=== PATIENT | female | born 1985 | race Caucasian/White ===

== ENCOUNTER → 2016-12-29 | Day surgery (SDC) | payer OTHER ==
[2016-12-25 15:02] VITALS: BMI 20.5
[~2016-12-29] MED LIST: ACETAMINOPHEN TAB 500 MG TAB PO ONE; DEXAMETHASONE SOD PHOSPHATE 10 MG/ML 1 ML VIAL IV ONE; HYDROmorphone 1 MG/ML 1 ML SYRINGE IVP PRN; LACTATED RINGERS 1,000 ML IV SCH; MELOXICAM 7.5 MG TAB PO ONE; ONDANSETRON 4 MG/2 ML VIAL IVP ONE; Pre Op ABX Message 1 EACH MISC MISCELLANE ONE
--- NOTE | 2016-12-29 17:51 | P.OPNOTE ---
Outpatient Note - . Assessment/Comments:: Ms. Landry presents today for her left knee arthroscopy. Over the weekend, she has developed what appears to be a rash or ALLERGIC reaction on the operative leg directly near the site where the arthroscopy portals would be made. She says that she was swimming this weekend, and after she swam, she applied a brace which sounds like a neoprene type on her affected leg and she developed a rash thereafter. She also has significant crusty lesions around her mouth which she claims is from sunburn. Clinically, they appear more like viral vesicular lesions. I have explained to her that considering that this may be cellulitis of her leg, it is advisable to postpone surgery until after the rash has resolved. I have also told her that I am much more comfortable if her facial/mouth lesions resolve as well before surgery. We will contact her from the office to see how she is doing in a few days for rescheduling of the procedure.
== END ==
LOC: OR 12:49
PROVIDERS: ATTEND Orthopaedic Surgery
DX: S83.282A Other tear of lateral meniscus, current injury, left knee, initial encounter (principal)

== ENCOUNTER 2017-01-19 10:48 | Day surgery (SDC) | payer OTHER ==
[2017-01-17 14:24] VITALS: BMI 20.5
[~2017-01-19 10:48] MED LIST changes: +MIDAZOLAM 2 MG/2 ML VIAL IV PRN
[2017-01-19] MEDS ORDERED: LIDOCAINE 1% 20 ML VIAL (10MG/ML) FOR IV START INTRADERMA ONE (11:16)
[2017-01-19] MEDS ORDERED: KETAMINE 10 MG/ML 20 ML VIAL ONE (12:36)
[2017-01-19] MEDS ORDERED: GLYCOPYRROLATE 0.2 MG/ML 2 ML VIAL ONE (12:36)
[2017-01-19] MEDS ORDERED: LIDOCAINE 1% INJ 10MG/ML (20 ML MDV) ONE (12:36)
[2017-01-19] MEDS ORDERED: fentaNYL (PF) 50 MCG/ML 2 ML AMP ONE (12:36)
[2017-01-19] MEDS ORDERED: HYDROmorphone (PF) 1 MG/ML ONE (12:36)
[2017-01-19] MEDS ORDERED: PROPOFOL 10 MG/ML 20 ML VIAL IV ONE (12:36)
[2017-01-19] MEDS ORDERED: SODIUM CHLORIDE 0.9% 50 ML with ceFAZolin 1,000 MG IV ONE ×2 (12:45)
[2017-01-19] MEDS ORDERED: BUPIVACAINE (PF) 0.25% 30 ML VIAL INTRAARTIC ONE (13:22)
[2017-01-19 14:09] VITALS: TEMP 98.4
[2017-01-19 14:20] VITALS: RESP 16
[2017-01-19 15:55] VITALS: BP 131/80; PULSE 62
--- NOTE | 2017-01-22 10:29 | P.OP ---
Date of Procedure: 01/19/17 Procedure(s) Performed: PREOPERATIVE DIAGNOSIS: 1. Left knee lateral meniscus bucket-handle tear 2. Left knee medial meniscus posterior horn tear 3. Left knee osteoarthritis, patellofemoral POSTOPERATIVE DIAGNOSIS: 1. Left knee bucket-handle lateral meniscus tear 2. Left knee stable posterior horn medial meniscus tear 3. Left knee osteoarthritis, patellofemoral, grade 2 PROCEDURES PERFORMED: 1. Left knee arthroscopy, with partial lateral meniscectomy (30)%, posterior horn and body 2. Arthroscopic chondroplasty of patellofemoral compartments 3. Healing response treatment to stable posterior horn medial meniscus tear ANESTHESIA: teasel setter: None COMPLICATIONS: none ESTIMATED BLOOD LOSS: Less than 10 ml DISPOSITION: To post-anesthesia care unit INDICATIONS: Steph is a 31-year-old female with a history of left knee pain on the both the medial and lateral sides. MRI is consistent with lateral and medial meniscus tears. There appears to be in acute bucket handle lateral meniscus tear on most recent MRI. Patient presents to the operating room today for arthroscopy with repair/debridement as necessary as well as chondroplasty or smoothing of the articular surfaces. I have explained the procedure in detail as well as potential risks and complications as being inclusive of but not limited to: Bleeding, infection, scarring, discomfort, blood vessel and/or nerve damage, failure to relieve symptoms, persistence or recurrence and/or worsening of symptoms, blood clot, pulmonary embolism, limp, , and other risks, including the need for knee replacement. The consent form has been signed. PROCEDURE: After appropriate consent was obtained, the patient was taken to the operating room and placed supine on the operating table. General anesthesia was initiated. The knee was examined under anesthesia. Medial collateral, lateral collateral, anterior and posterior cruciate ligaments were all intact. Range of motion was -10 to 95 with mild crepitus in the patellofemoral compartment. Mild effusion but no soft tissue swelling was noted. Prepping and draping of the operative knee was performed in the usual sterile fashion using ChloraPrep. Care was taken that all pressure points were adequately padded. Leg xiao and pneumotourniquet were used. ``Time-out" was called according to [facility] standards, confirming patient identity, surgical procedure, side, and antibiotic administration. The surgical portals were placed directly next to the patellar tendon medially and laterally. Camera and instruments were carefully inserted into the knee and arthroscopy was performed. Patellofemoral joint was first inspected. Mild synovitis was seen, and was resected where it appeared particularly inflamed. Patellofemoral joint was noted to be arthritic, with grade 2 changes present over 50 %. Chondroplasty was performed using a shaver and radiofrequency probe, removing unstable cartilage elements and smoothing the surface to eliminate step-off. Lateral compartment was then examined. Lateral meniscus tear was noted involving the body and posterior horn and appeared to be a bucket handle-type tear after visualization and probing. The quality of the tissue was poor and the tear was located in the white white zone. The meniscus tear was resected using a combination of basket forceps and shaver. Approximately 30 % of the meniscus was resected. The remaining meniscus was noted to be intact and stable. Hyaline cartilage showed normal findings without evidence of significant arthritis. Medial compartment was then examined. Medial meniscus tear was noted involving the posterior horn and appeared to be a stable vertical-type tear after visualization and probing. Maximum amount of displacement was well under 5 mm. The meniscus tear was treated with perforation of the posterior capsule at the location of the tear several times using a spinal needle. Hyaline cartilage showed no significant arthritis. Cruciate ligaments were noted to be intact. No loose bodies or ganglion cysts were noted around the cruciate ligaments. Medial and lateral gutters showed no evidence of loose bodies, but some mild synovitis was present and was resected with a shaver. Portals were then closed with 4-0 Monocryl suture. A quantity of Marcaine solution was injected into the knee and around the portal sites. Steri-Strips were applied and tourniquet was deflated. Sterile dressing and light compressive dressing was applied using Webril and ROMI wrap. Patient tolerated the procedure well and taken to recovery room in stable condition. Sponge and needle counts were correct.
== END 2017-01-19 16:02 | disposition home or self-care (01) ==
LOC: OR 10:48
PROVIDERS: ATTEND Orthopaedic Surgery
DX: S83.252A Bucket-handle tear of lateral meniscus, current injury, left knee, initial encounter (principal); S83.242A Other tear of medial meniscus, current injury, left knee, initial encounter; X58.XXXA Exposure to other specified factors, initial encounter; M65.9 Synovitis and tenosynovitis, unspecified; M17.12 Unilateral primary osteoarthritis, left knee; F17.200 Nicotine dependence, unspecified, uncomplicated; M41.9 Scoliosis, unspecified; Z79.891 Long term (current) use of opiate analgesic; Z91.040 Latex allergy status
CPT/HCPCS: 29880; 81025; J1100; J2405; J2001; J3010; J1170; J0690; J2704